=== PATIENT | male | born 1965 | race Caucasian/White ===

== ENCOUNTER 2019-01-02 15:06 | Emergency (ER) | payer OTHER ==
[~2019-01-02] VITALS: Ht 193 cm; Wt 94.3 kg
[2019-01-02 17:32] VITALS: BP 119/60
== END 2019-01-02 17:33 | disposition home or self-care (01) ==
LOC: ER 15:06
DX: G89.18 Other acute postprocedural pain (principal); M79.89 Other specified soft tissue disorders; Z96.651 Presence of right artificial knee joint

== ENCOUNTER 2019-08-08 11:33 | Emergency (ER) | payer OTHER ==
[~2019-08-08] VITALS: Ht 193 cm; Wt 93.0 kg
[2019-08-08 12:28] LABS: HEMATOCRIT 43.4 % (42.0-52.0); HEMOGLOBIN 14.4 gm/dL (14.0-18.0); MCH 29.9 pg (26.0-34.0); MCHC 33.3 g/dL (28.0-37.0); MCV 89.6 fL (80.0-100.0); PLATELET COUNT 294 thou/uL (150-400); RBC 4.84 mil/uL (4.50-6.00); RDW 14.4 % (10.5-14.5); WBC 4.8 thou/uL (4.0-11.0)
[2019-08-08 12:30] LABS: CALCIUM 9.8 mg/dL (8.5-10.1); CREATININE 1.1 mg/dL (0.7-1.3); POTASSIUM 4.7 mmol/L (3.5-5.1)
[2019-08-08 12:34] LABS: ALBUMIN 4.1 g/dL (3.4-5.0); TOTAL BILIRUBIN 1.3 mg/dL (<0.1-1.0); TOTAL PROTEIN 8.1 g/dL (6.4-8.2)
[2019-08-08 13:13] LABS: ABSOLUTE NEUTROPHILS 2.3 thou/uL (1.4-8.2); MYELOCYTES 1 %
[2019-08-08] MEDS ORDERED: LEVAQUIN 500 M500 M3 PO (13:29)
[2019-08-08] MEDS ORDERED: NAPROSYN500 M1 PO (13:29)
[2019-08-08 13:59] VITALS: BP 130/73
[2019-08-08 15:12] LABS: URINE BILIRUBIN NEGATIVE (Negative); URINE BLOOD NEGATIVE (Negative); URINE CLARITY CLEAR; URINE COLOR YELLOW; URINE GLUCOSE-RANDOM* NEGATIVE (Negative); URINE KETONES NEGATIVE (Negative); URINE LEUKOCYTES-REFLEX NEGATIVE (Negative); URINE NITRITE-REFLEX NEGATIVE (Negative); URINE PROTEIN (DIPSTICK) NEGATIVE (Negative); URINE SPECIFIC GRAVITY 1.025 (1.005-1.035); URINE UROBILINOGEN 0.2 E.U./dl (0.2-1.0)
== END 2019-08-08 14:02 | disposition home or self-care (01) ==
LOC: ER 11:33
PROVIDERS: Physician Assistant
DX: N45.1 Epididymitis (principal); Z96.651 Presence of right artificial knee joint